=== PATIENT | female | born 1965 | race Caucasian/White ===

== ENCOUNTER → 2019-10-16 10:03 | Outpatient (CLI) | payer OTHER, SELFPAY ==
--- NOTE | ~2019-10-16 | US_ITS ---
EXAMINATION: US retroperitoneal comp DATE: 10/16/2019 10:41 INDICATION: Renal mass TECHNIQUE: Multiple grayscale, color Doppler, and pulsed Doppler images of the kidneys and renal sevlin jj were obtained. COMPARISON: MRI dated 09/26/2017 FINDINGS: The right kidney measures 9.5 x 5.3 x 4.2 cm. The left kidney measures 9.9 x 5.8 x 5.0 cm. The kidney s demonstrate normal echogenicity. Bilateral anechoic renal cysts measuring up to 2.5 cm in maximal d iameter at the lateral interpolar region of the right kidney and 2.0 cm exophytic at the anterior mid left kidney. There is no hydronephrosis in either kidney. No stones identified. The bladder is norm al with bilateral ureteral jets visualized on color Doppler. IMPRESSION: 1. Bilateral anechoic renal cysts with no hydronephrosis. No solid renal lesions identified. Reviewed, dictated and finalized at location A. [facility] IMPRESSION: 1. Bilateral anechoic renal cysts with no hydronephrosis. No solid renal lesio ns identified.
== END ==
PROVIDERS: Visit Provider Urology
DX: N28.89 Other specified disorders of kidney and ureter (principal)
CPT/HCPCS: 76770

== ENCOUNTER 2022-01-29 11:22 | Outpatient (CLI) | payer OTHER, SELFPAY ==
[2022-01-29 12:46] LABS: SARS-CoV-2 RNA PCR Positive (Negative)
== END 2022-01-29 11:23 | disposition home or self-care (01) ==
LOC: CHSLAB 11:33
PROVIDERS: PCP Internal Medicine; Visit Provider Nurse Practitioner Family
DX: U07.1 COVID-19 (principal)
CPT/HCPCS: C9803; U0003; U0005

== ENCOUNTER 2022-03-14 09:41 | Outpatient (CLI) | payer OTHER, SELFPAY ==
--- NOTE | ~2022-03-14 | MM_ITS ---
EXAMINATION: MM screening [facility] BI w [facility] HISTORY: Screening TECHNIQUE: Craniocaudal and mediolateral oblique 3-D tomosynthesis images were obtained and synthetic 2-D images were generated. CAD analysis was submitted and interpreted. COMPARISON: Comparison to multiple prior studies sequentially, with oldest reviewed study dated 11/19. BREAST PARENCHYMAL COMPOSITION: Breast composed of scattered areas of fibroglandular density FINDINGS: There is no evidence of suspicious mass, calcification, or architectural distortion to sugg est malignancy in either breast. There has been no suspicious interval change. IMPRESSION: 1. No mammographic evidence of malignancy. 2. Recommend routine screening mammography in one year. BI-RADS Category 1: Negative Reviewed, dictated and finalized at location A.
== END 2022-03-14 09:42 | disposition home or self-care (01) ==
PROVIDERS: PCP Internal Medicine; Visit Provider Obstetrics & Gynecology
DX: Z12.31 Encounter for screening mammogram for malignant neoplasm of breast (principal)
CPT/HCPCS: 77063; 77067

== ENCOUNTER 2023-06-17 16:04 | Outpatient (CLI) | payer OTHER, SELFPAY ==
--- NOTE | ~2023-06-17 | MM_ITS ---
EXAMINATION: MM screening [facility] BI w [facility] HISTORY: Screening mammogram TECHNIQUE: Craniocaudal and mediolateral oblique 3-D tomosynthesis images were obtained and synthetic 2-D images were generated. CAD analysis was submitted and interpreted. COMPARISON: 03/14/2022, 06/2018 bilateral screening mammogram examinations BREAST PARENCHYMAL COMPOSITION: The breasts are almost entirely fatty. FINDINGS: Occasional benign-appearing 3.5 mm or smaller circumscribed low-density nodular opacities a re noted. There is no evidence of suspicious mass, calcification, or architectural distortion to sugg est malignancy in either breast. There has been no suspicious interval change. IMPRESSION: 1. Benign findings. No mammographic evidence of malignancy. 2. Recommend routine screening mammography in one year. BI-RADS Category 2: Benign finding(s) Reviewed, dictated and finalized at location A.
== END 2023-06-17 16:05 | disposition home or self-care (01) ==
PROVIDERS: PCP Internal Medicine; Visit Provider Obstetrics & Gynecology
DX: Z12.31 Encounter for screening mammogram for malignant neoplasm of breast (principal)
CPT/HCPCS: 77063; 77067

== ENCOUNTER 2024-03-27 21:39 | Emergency (ER) | payer OTHER, SELFPAY ==
[2024-03-27] VITALS (8 sets, daily range): BP systolic 125–165; BP diastolic 59–108; PULSE 110–128; RESP 19–22; TEMP 36.9–37.6; O2SAT 96–99
--- NOTE | ~2024-03-27 | XR_ITS ---
XR chest 2V DATE: 03/27/2024 22:35 INDICATION: Cough, wheezing TECHNIQUE: PA and lateral views COMPARISON: 01/02/2010 PA and lateral chest FINDINGS: Normal heart size. Aortic arch calcification, mild aortic unfolding. Calcified aortopulmona ry window lymph node. Calcified pulmonary granuloma, right mid to lower lung. No hilar or mediastinal enlargement. No pulmonary infiltrate or consolidation, pleural effusion or pulmonary vascular congestion or pneumo thorax. Osteopenia. IMPRESSION: Old pulmonary granulomatous disease No active cardiopulmonary disease Aortic atherosclerosis Osteopenia Reviewed, dictated and finalized at location A.
--- NOTE | 2024-03-27 21:47 | ED.GENADULT ---
HPI - General Adult General Chief complaint: Fever Stated complaint: upper respiratory Time Seen by Provider: 03/27/24 21:47 Source: patient Mode of arrival: ambulatory Limitations: no limitations History of Present Illness HPI narrative: 59-year-old morbidly obese white female complains of fever and tachycardia and high blood pressure today. Eight days ago she was positive for COVID had a cough fever and runny nose. This went away after about 3 days and for the last 5 days she has been feeling fine. Yesterday she tested herself for COVID was negative. Yesterday she was feeling fine. Today she felt hot and feverish and had a temperature of a 102?. She took her O2 sat monitor on her finger and her sats were in the high 80s and 90s but her pulse was in the 120s and her blood pressure was 190/90. Does not have any cough runny nose. When sugar temperature is a 102? she had shaking chills felt hot. Denies any nausea vomiting diarrhea shortness of breath chest pain. She denies any chest other pain other than her chronic left knee pain that she always has without any changes. She has had continued decreased in taste or appetite has not been as great as normal. Otherwise she is eating and drinking okay. Denies any problems stooling. She has chronic urinary frequency and goes 4-5 times at night she has had history of UTIs in the past but denies any burning or urinary discomfort. Denies any swelling lumps or bumps rash or itching dizziness or lightheadedness bleeding or bruising weakness or numbness. She took some Tylenol half an hour prior to coming to the emergency room and some meloxicam at 7:00 p.m.. Patient denies any other complaints. Allergies: sulfa allergy Related Data Home Medications Medication Instructions Recorded Confirmed Nexium 20 mg PO DAILY 03/27/24 03/27/24 meloxicam 15 mg tablet 15 mg PO DAILY 03/27/24 03/27/24 Allergies Allergy/AdvReac Type Severity Reaction Status Date / Time Sulfa (Sulfonamide Allergy Unknown Verified 12/21/08 15:35 Antibiotics) nkfa Allergy Unknown Uncoded 03/01/03 14:53 SULFAMERAZINE (Generic Allergy Y Uncoded 03/01/03 15:39 Allergy) Review of Systems Review of Systems: All systems reviewed & are unremarkable except as noted in HPI and below Exam Narrative: temp 99.6? blood pressure 165/108 pulse 128 respirations 20 O2 sat on room air is 97% Morbidly obese white female patient with no apparent distress.? Head normocephalic, atraumatic.? Eyes conjunctiva pink sclera nonicteric.? Extraocular movements are intact.? Ears externally normal.? Oropharynx is clear with moist mucous membranes without exudates.? Neck is supple nontender no lymphadenopathy.? Back is nontender.? Lungs are clear.? Heart is regular rate and rhythm with a 2/6 systolic murmurs without any gallops or rubs.? Chest wall nontender. Abdomen is soft and nontender no hepatosplenomegaly or masses no CVA tenderness no abdominal bruits.? Extremities no cyanosis clubbing or edema.? Skin is warm and dry without lesions. Right anterior distal alfaro has a macular erythematous warm rash consistent with a cellulitis.? Neurological patient is alert and oriented x4.? Motor and sensory grossly intact.? Gait is normal. Course Vital Signs Vital signs: Vital Signs Temperature 37.6 C H 03/27/24 21:41 Pulse Rate 128 H 03/27/24 21:41 Respiratory Rate 20 03/27/24 21:41 Blood Pressure 165/108 H 03/27/24 21:41 Pulse Oximetry 97 03/27/24 21:41 Oxygen Delivery Room Air 03/27/24 21:41 Temperature 36.9 C 03/27/24 23:30 Pulse Rate 114 H 03/27/24 23:45 Respiratory Rate 22 H 03/27/24 23:45 Blood Pressure 154/89 H 03/27/24 23:45 Pulse Oximetry 97 03/27/24 23:45 Oxygen Delivery Room Air 03/27/24 21:41 Medical Decision Making [facility] Narrative Medical decision making narrative: ? Patient placed in room: 2. ? History and physical was performed. Independent Histori
--- NOTE | 2024-03-27 22:10 | PC.NURSE ---
transported to [facility] via stretcher. lab notified of new orders.
--- NOTE | 2024-03-27 22:19 | ECG_ITS ---
Test Date: 2024-03-27 22:36:14 Measurements Intervals [place] Rate: 118 P: 64 [place]: 146 QRS: -10 QRSD: 97 T: 45 QT: 313 QTc: 440 Interpretive Statements SINUS TACHYCARDIA BASELINE ARTIFACT- I, III, AVR, AVL, AVF, V1-V2 ABNORMAL ECG No previous ECG available for comparison Electronically Signed On 03-28-2024 07:37:39 CDT by Bunny Lyons D.O.
--- NOTE | 2024-03-27 22:36 | PC.NURSE ---
lab at the bedside
[2024-03-27] MEDS: ACETAMINOPHEN 325 MG TABLET 650 MG PO (22:52)
[2024-03-27 22:56] LABS: Hematocrit 38.6 % (35.0-49.0); Hemoglobin 12.6 g/dL (12.0-15.0); Mean Corpuscular HGB Conc 32.6 g/dL (32-36); Mean Corpuscular Hemoglobin 27.1 pg (27.0-31.0); Mean Platelet Volume 11.2 fl (9.2-11.8); Platelet Count Result 145 K/mm3 (150-420); Red Blood Count 4.65 M/mm3 (4.20-5.40); Red Cell Distribution Width 13.8 % (11.6-14.4); White Blood Count 17.4 K/mm3 (4.8-10.8)
[2024-03-27 22:57] LABS: Appearance Urine Clear (Clear); Bilirubin Urine Negative (Negative); Blood Urine Trace-intact (Negative); Color Urine Yellow (Yellow); Glucose Urine UA Negative (Negative); Ketones Urine Negative (Negative); Leukocyte Esterase Ur Negative LEU/UL (Negative); Nitrate Urine Negative (Negative); Protein Urine Negative (Negative); Urobilinogen Urine 0.2 mg/dL (0.2-1.0)
[2024-03-27 23:03] LABS: Add Urine Microscopic? YES; Bacteria Urine 1+ /hpf; RBC Urine 0-2 /hpf (0-2); Squamous Epithelial Cell Urine Many /hpf (Few)
[2024-03-27 23:04] LABS: Mucus Urine Moderate /lpf
[2024-03-27 23:14] LABS: Alanine Aminotransferase 25 U/L (14-59); Albumin Level 3.9 g/dL (3.4-5.0); Alkaline Phosphatase 98 U/L (46-116); Anion Gap 10 mmol/L (4-12); Aspartate Amino Transferase 22 U/L (15-37); Bilirubin,Total 0.8 mg/dL (0.00-1.00); Blood Urea Nitrogen 18 mg/dL (7-18); Calcium 8.9 mg/dL (8.5-10.1); Carbon Dioxide 26 mmol/L (21-32); Chloride 100 mmol/L (98-108); Estimated CRCL calculation 80 ml/min; Estimated Glomerular Filt Rate > 60; Glucose 106 mg/dL (70-99); Osmolality Calculated 283 mOsm/kg (285-295); Potassium 3.7 mmol/L (3.5-5.1); Sodium 136 mmol/L (136-145); Total Protein 7.3 g/dL (6.4-8.2)
[2024-03-27] MEDS: cefTRIAXone 1 GM, LIDOCAINE HCL 1% LOCAL INJ 2.1 ML IM (23:50)
--- NOTE | 2024-03-27 23:55 | PC.NURSE ---
patient was removed from vehicle monitor technician. currently getting dressed
--- NOTE | 2024-03-28 00:23 | PC.NURSE ---
wound to right lower leg marked with skin marker by Zofia richards
--- NOTE | 2024-04-03 13:06 | PC.NURSE ---
final blood cultures x2 reviewed. no growth after 5 days. no change in pt plan of care.
== END 2024-03-28 00:24 | disposition home or self-care (01) ==
PROVIDERS: Emergency Provider Emergency Medicine; PCP Internal Medicine
DX: L03.115 Cellulitis of right lower limb (principal); Z79.1 Long term (current) use of non-steroidal anti-inflammatories (NSAID); Z79.899 Other long term (current) drug therapy
CPT/HCPCS: 36415; 71046; 80053; 81001; 85027; 87040; 93005; 96372; 99284; A9270; J0696

== ENCOUNTER 2024-12-04 13:04 | Emergency (ER) | payer BC, SELFPAY ==
--- OUTSIDE RECORDS SUMMARY | 2024-12-04 13:06 | XMS_ITS | Referral Summary ---
Author Organization [facility] Medical Office Building [address] Address [address] [place] [address] Care Team Providers Care Cassandra Architect Name Role Phone Johnny Dasilva MD Primary Care Provider [phone] Allergies Active Allergy Reactions Criticality Noted Date Comments Sulfa (Sulfonamide Antibiotics) Unknown 09/08 Medications HYDROcodone-eloy taminophen (NORCO) 7.5-325 mg per tabletIndicatio ns:Pain 0 07/14/2017 Active multivitamin capsule Take 1 capsule by mouth daily. Active Active Problems No known active problems Social History Tobacco Use Types Packs/Day Years Used Date Smoking Tobacco: Never Smokeless Tobacco: Never Alcohol Use Standard Drinks/Week Comments Yes 0 (1 standard drink = 0.6 oz pur e alcohol) Personal Safety Answer Date Recorded Getting School Help Needed Not on file 11/21 Comments Unknown Sex and Gender Information Value Date Recorded Sex Assigned at Not on file Legal Sex Female 1:33 AM COIL MAKER Gender Identity Not on file Sexual Orientation Not on file Last Filed Vital Signs Vital Sign Reading Time Taken Comments Blood Pressure 131/84 09/18/2017 10:12 AM COIL MAKER Pulse 69 09/18/2017 10:12 AM COIL MAKER Temperature - - Respiratory Rate - - Oxygen Saturation - - Inhaled Oxygen Concentration - - Weight 122.5 kg (270 lb) 09/18/2017 10:12 AM COIL MAKER Height 160 cm (5' 3 ) 09/18/2017 10:12 AM COIL MAKER Body Mass Index 47.83 09/18/2017 10:12 AM COIL MAKER Plan of Treatment Not on file Insurance [employer] Care Teams Cassandra Architect Relationship Specialty Start Date End Date Johnny Dasilva MD PCP - General Internal Medicine 09/04/17
--- OUTSIDE RECORDS SUMMARY | 2024-12-04 13:06 | XMS_ITS | Clinical Summary ---
Author Organization [facility] Medical Office Building [address] Address [address] [place] [address] Care Team Providers Care Beater Engineer Helper Name Role Phone Johnny Dasilva MD Primary Care Provider [phone] Allergies Active Allergy Reactions Criticality Noted Date Comments Sulfa (Sulfonamide Antibiotics) Unknown 09/08 Medications HYDROcodone-eloy taminophen (NORCO) 7.5-325 mg per tabletIndicatio ns:Pain 0 07/14/2017 Active multivitamin capsule Take 1 capsule by mouth daily. 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 Gender Identity Not on file Sexual Orientation Not on file Obstetrics History Last Filed Vital Signs Vital Sign Reading Time Taken Comments Blood Pressure 131/84 09/18/2017 10:12 AM PROOF MACHINE OPERATOR Pulse 69 09/18/2017 10:12 AM PROOF MACHINE OPERATOR Temperature - - Respiratory Rate - - Oxygen Saturation - - Inhaled Oxygen Concentration - - Weight 122.5 kg (270 lb) 09/18/2017 10:12 AM PROOF MACHINE OPERATOR Height 160 cm (5' 3 ) 09/18/2017 10:12 AM PROOF MACHINE OPERATOR Body Mass Index 47.83 09/18/2017 10:12 AM PROOF MACHINE OPERATOR Plan of Treatment Not on file Insurance [facility] Care Teams Beater Engineer Helper Relationship Specialty Start Date End Date Johnny Dasilva MD PCP - General Internal Medicine 09/04/17
--- OUTSIDE RECORDS SUMMARY | 2024-12-04 13:06 | XMS_ITS | Clinical Summary ---
Author Organization [facility] Address [facility] [place] [address] Care Team Providers Care Package Collector Name Role Phone Unavailable Primary Care Provider Unavailabl e Social History Tobacco Use Types Packs/Day Years Used Date Smoking Tobacco: Never Assessed Comments Unknown Sex and Gender Information Value Date Recorded Sex Assigned at Not on file Legal Sex Female 8:40 PM CDT Gender Identity Not on file Sexual Orientation Not on file Plan of Treatment Health Maintenance Due Date Last Done Comments Cervical Cancer Screening Pa p Smear (Age 30 to 64) Every 3 Years 1963 Colorectal Cancer Screening Colonoscopy (10 Years) 1963 Annual Physical 1966 Hepatitis C 1981 DTaP, Tdap and Td Vaccines ( 1 - Tdap) 1982 Cervical Cancer Screening Pa p with HPV Testing (Age 30 to 64) Every 5 Years 1993 Cervical Cancer Screening with HPV 1993 Mammogram Screening 2003 Zoster Vaccines (1 of 2) 2013 COVID-19 Vaccine ( - 2023-2 5 season) 2024 RSV Immunization or 60+ Years (1 - 1-dose 75+ series) 2038 Meningococcal B Vaccine Aged Out No l onger eligible based on patient's age to complete this topic Meningococcal Vaccine Aged Out No marie tarun eligible based on patient's age to complete this topic Pneumococcal Vaccine: Pediat rics (0 to 5 Years) and At-Risk Patients (6 to 64 Years) Aged Out No longer eligible b ased on patient's age to complete this topic RSV Immunizations Under 20 Months Aged Out No longer eligible based on patient's age to complete this topic
[2024-12-04 13:07] VITALS: BP 158/107; PULSE 121; RESP 20; TEMP 36.9; O2SAT 100
--- NOTE | 2024-12-04 13:16 | ED_ITS ---
HPI - Extremity Injury (Lower) General Chief Complaint: Extremity Injury, Lower Stated Complaint: right lower leg redness Time Seen by Provider: 12/04/24 13:06 Source: patient Mode of arrival: ambulatory Limitations: no limitations History of Present Illness HPI Narrative: patient is a 59-year-old female with significant past medical history that presents today for cellulitis. Patient has cellulitis on her right lower extremity below the knee. She states she gets this ever so often last time she had it was 7 months ago and it did the same thing it appeared very quickly and started burning and she started getting some chills. She said today is started about 30 minutes ago she started getting chills and looked down and saw the cellulitis forming. It is erythematous around the medial area and a circular fashion distal to the knee. MD complaint: other ( Right lower extremity cellulitis) Onset (ago): minute(s) Type of Injury: other ( cellulitis) Place: home Severity: mild Severity scale (1-10): 3 Relieving factors: nothing Exacerbating factors: palpation Associated symptoms: swelling Other symptoms: none Related Data Home Medications ?Medication ?Instructions ?Recorded ?Confirmed ?Last Taken ?Type Nexium 20 mg PO DAILY 03/27/24 03/27/24 Unknown History meloxicam 15 mg tablet 15 mg PO DAILY 03/27/24 03/27/24 Unknown History Allergies Allergy/AdvReac Type Severity Reaction Status Date / Time Sulfa (Sulfonamide Allergy Unknown Unknown Verified 12/04/24 13:08 Antibiotics) nkfa Allergy Unknown none Uncoded 12/04/24 13:08 SULFAMERAZINE (Generic Allergy Y Uncoded 12/04/24 13:08 Allergy) Review of Systems Review of Systems: All systems reviewed & are unremarkable except as noted in HPI and below Constitutional: Constitutional: Reports as per HPI Eyes: Eyes: Reports no additional eye complaints ENT: Reports system reviewed and no additional complaints, except as documented Cardiovascular: Cardiovascular: Reports no additional cardiovascular complaints Respiratory: Respiratory: Reports no additional respiratory complaints Gastrointestinal: Gastrointestinal: Reports no additional gastrointestinal complaints Genitourinary: Genitourinary: Reports no additional female genitourinary complaints Musculoskeletal: Musculoskeletal: Reports no additional musculoskeletal complaints Integumentary/Breasts: Skin/Breast: Reports as per HPI Comments: cellulitis lower extremity right leg Neurologic: Reports system reviewed and no additional complaints, except as documented Psychiatric: Psychiatric: Reports no additional psychiatric complaints Endocrine: Endocrine: Reports no additional endocrine complaints Hematologic/Lymphatic: Hematologic/Lymphatic: Reports no additional hematologic/lymphatic complaints Allergic/Immunologic: Allergic/Immunologic: Reports no additional allergic/immunologic complaints Exam Const: General: healthy appearing Nutritional Appearance: well nourished Orientation/consciousness: patient oriented x3 Limitations: no limitations HENMT: Head: normal to inspection Ears: external ears normal Face/Nose/Sinus: Normal external nose present Face and sinus: normal facial exam Eyes: Conjunctivae: conjunctivae normal Pupils: Equal, round and reactive pupils present EOM: EOMs intact bilaterally Neck: Neck: normal visual inspection Chest: Chest palpation & inspection: normal inspection of the chest Resp: Effort & Inspection: normal respiratory effort Auscultation: clear to auscultation bilaterally Cardio: Rate: regular rate Rhythm: regular rhythm GI: GI Palp: Yes Soft to palpation Back/Spine/Pelvis: Back: no CVA tenderness Skin: General skin exam: normal color Other: cellulitis right lower extremity Neuro: General: patient oriented x3 Cranial nerves: Yes Nystagmus not present Speech: normal speech Gait exam (Neuro): Normal gait present Extrem: General: normal to inspection Psych: Mental Status: mental status grossly normal Affect: normal affect Attitude: cooperative Course Vital Signs Vital signs: Vital Signs Temperature 98.5 F 12/04/24 13:07 Pulse Rate 121 H 12/04/24 13:07 Respiratory Rate 20 12/04/24 13:07 Blood Pressure 158/107 H 12/04/24 13:07 Pulse Oximetry 100 12/04/24 13:07 Oxygen Delivery Room Air 12/04/24 13:07 Temperature 98.5 F 12/04/24 13:07 Pulse Rate 121 H 12/04/24 13:07 Respiratory Rate 20 12/04/24 13:07 Blood Pressure 158/107 H 12/04/24 13:07 Pulse Oximetry 100 12/04/24 13:07 Oxygen Delivery Room Air 12/04/24 13:07 MDM - Extremity Injury (Lower) MDM Narrative Medical decision making narrative: patient has had cellulitis multiple times of this seems area on right lower extremity. She says this feels and looks was same has had this multiple times last time 7 months ago. She said she normally gets IV antibiotics before she is discharged. Agree to give her IV doxycycline 1 round of this before she leaves and then send the rest orally to her pharmacy. Differential Diagnosis Differential diagnosis: Likely other ( Cellulitis to lower extremity) Medical Records Attestation: I reviewed the patient's medical records. Lab Data Attestation: I reviewed the patient's lab results. Discharge Plan Discharge Clinical Impression: Cellulitis of anterior lower leg Patient Disposition: Home, Self-Care Condition: Stable Instructions: Antibiotic Form, Cellulitis (ED) Additional Instructions: take full dose of antibiotics as prescribed for 10 days. Drink plenty of fluids and stay well hydrated. Recommend following up with a wound care or individual pension consultant for this to see there is an underlying cause of why she continues to get cellulitis the same spot this many times now. Patient Language: Jordanian Prescriptions: New doxycycline hyclate 100 mg tablet 100 mg PO BID Qty: 20 0RF No Action meloxicam 15 mg tablet 15 mg PO DAILY Nexium 20 mg PO DAILY cephalexin 500 mg capsule 500 mg PO Q8H 10 Days Qty: 30 0RF Follow-up/Referrals: Johnny Dasilva MD [Primary Care Provider] - Time of Disposition: 13:57
[2024-12-04] MEDS: DOXYCYCLINE 100 MG/NS 100 ML 100 MG/100 ML BAG IVPB (13:33)
[2024-12-04 14:00] VITALS: BP 132/95; PULSE 82; RESP 16; O2SAT 100
--- OUTSIDE RECORDS SUMMARY | 2024-12-04 14:04 | XMS_ITS | Clinical Summary ---
Author Organization [facility] Address [facility] [place] [address] Care Team Providers Care Machine Bender Name Role Phone Unavailable Primary Care Provider [...]
--- OUTSIDE RECORDS SUMMARY | 2024-12-04 14:04 | XMS_ITS | Referral Summary ---
Author Organization [facility] Medical Office Building [address] Address [address] [place] [address] Care Team Providers Care Haulpak Driver Name Role Phone Johnny Dasilva MD Primary Care Provider [phone] Allergies Active Allergy Reactions Criticality Noted Date [...] on file Legal Sex Female 1:33 AM DISK RECORDIST Gender Identity Not on file Sexual Orientation Not on file Last Filed Vital Signs Vital Sign Reading Time Taken Comments Blood Pressure 131/84 09/18/2017 10:12 AM DISK RECORDIST Pulse 69 09/18/2017 10:12 AM DISK RECORDIST Temperature - - Respiratory Rate - - Oxygen Saturation - - Inhaled Oxygen Concentration - - Weight 122.5 kg (270 lb) 09/18/2017 10:12 AM DISK RECORDIST Height 160 cm (5' 3 ) 09/18/2017 10:12 AM DISK RECORDIST Body Mass Index 47.83 09/18/2017 10:12 AM DISK RECORDIST Plan of Treatment Not on file Insurance [employer] Care Teams Haulpak Driver Relationship Specialty Start Date End Date Johnny Dasilva MD PCP - General Internal Medicine 09/04/17
--- OUTSIDE RECORDS SUMMARY | 2024-12-04 14:04 | XMS_ITS | Clinical Summary ---
Author Organization [facility] Medical Office Building [address] Address [address] [place] [address] Care Team Providers Care Dredge Runner Name Role Phone Johnny Dasilva MD Primary Care Provider [phone] Allergies Active Allergy Reactions Criticality Noted Date [...] on file Legal Sex Female 1:33 AM PAYROLL BOOKKEEPER Gender Identity Not on file Sexual Orientation Not on file Obstetrics History Last Filed Vital Signs Vital Sign Reading Time Taken Comments Blood Pressure 131/84 09/18/2017 10:12 AM PAYROLL BOOKKEEPER Pulse 69 09/18/2017 10:12 AM PAYROLL BOOKKEEPER Temperature - - Respiratory Rate - - Oxygen Saturation - - Inhaled Oxygen Concentration - - Weight 122.5 kg (270 lb) 09/18/2017 10:12 AM PAYROLL BOOKKEEPER Height 160 cm (5' 3 ) 09/18/2017 10:12 AM PAYROLL BOOKKEEPER Body Mass Index 47.83 09/18/2017 10:12 AM PAYROLL BOOKKEEPER Plan of Treatment Not on file Insurance [facility] Care Teams Dredge Runner Relationship Specialty Start Date End Date Johnny Dasilva MD PCP - General Internal Medicine 09/04/17
[2024-12-04 14:48] VITALS: BP 142/80; PULSE 86; RESP 18; TEMP 37.1; O2SAT 100
== END 2024-12-04 14:48 | disposition home or self-care (01) ==
LOC: CHSED 14:02
PROVIDERS: Emergency Provider Family Medicine; PCP Internal Medicine
DX: L03.115 Cellulitis of right lower limb (principal)
CPT/HCPCS: 96365; 99284